=== PATIENT | male | born 1960 | race Caucasian/White ===

== ENCOUNTER 2018-10-02 08:26 | Inpatient (IN) | payer MEDICARE, MEDICAID ==
[~2018-10-02] VITALS: Ht 188 cm; Wt 137.8 kg
--- NOTE | 2018-10-02 08:26 | NUR ---
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
[2018-10-02] MEDS ORDERED: SODIUM CHLORIDE FLUSH 10ML SYR IVF ONE (09:00)
--- NOTE | 2018-10-02 09:04 | NUR ---
pt upright on gurney awake & comfortable, responds to staff approp, NAD, comfort measures provided, call light within reach.
[2018-10-02] MEDS ORDERED: METO25TA35 PO (09:23)
[2018-10-02] MEDS ORDERED: LOSA100T14 PO (09:23)
[2018-10-02] MEDS ORDERED: FOLI-17 PO (09:23)
[2018-10-02] MEDS ORDERED: CITA10TA4 PO (09:23)
[2018-10-02] MEDS ORDERED: GABA300C10 PO (09:23)
[2018-10-02] MEDS ORDERED: THIA500T PO (09:23)
[2018-10-02] MEDS ORDERED: AMLO-150 PO (09:23)
[2018-10-02] MEDS ORDERED: MAGN400T26 PO (09:23)
[2018-10-02] MEDS ORDERED: MULT-658 PO (09:23)
[2018-10-02 09:30] LABS: BASOPHILS # (AUTO) 0.01 x10^3/uL (0-0.1); BASOPHILS % (AUTO) 0 % (0-1); EOSINOPHILS % (AUTO) 0 % (1-7); LYMPHOCYTES # (AUTO) 0.76 x10^3/uL (1-3.4); LYMPHOCYTES % (AUTO) 6 % (22-44); MD NO; MEAN CORPUSCULAR HEMOGLOBIN 33.8 pg (27.5-34.5); MEAN CORPUSCULAR HGB CONC 33.3 g/dL (33.2-36.2); MEAN CORPUSCULAR VOLUME 101.6 fL (81-97); MONOCYTES # (AUTO) 0.14 x10^3/uL (0.2-0.8); MONOCYTES % (AUTO) 1 % (2-9); NEUTROPHILS # (AUTO) 10.89 x10^3/uL (1.8-6.8); NEUTROPHILS % (AUTO) 92 % (42-75); PLATELET COUNT 213 x10^3/uL (130-400); RED BLOOD COUNT 4.04 x10^6/uL (4.38-5.82); RED CELL DISTRIBUTION WIDTH 17.4 % (9.4-14.8)
[2018-10-02 09:34] LABS: INTERNATIONAL NORMALIZED RATIO 1.25 (0.93-1.1)
[2018-10-02 09:36] LABS: ALBUMIN 1.7 g/dL (3.4-5.0); CALCIUM 7.8 mg/dL (8.5-10.1)
[2018-10-02 09:37] LABS: ALANINE AMINOTRANSFERASE 21 U/L (12-78); CREATININE 1.29 mg/dL (0.7-1.3)
[2018-10-02 09:39] LABS: ALKALINE PHOSPHATASE 193 U/L (45-117); BILIRUBIN,TOTAL 3.4 mg/dL (0.2-1.0); TOTAL PROTEIN 8.2 g/dL (6.4-8.2)
--- NOTE | 2018-10-02 09:51 | NUR ---
Pt to be admitted to med-surg, room 451. Report called to Thi.
[2018-10-02 10:04] LABS: ANION GAP 12 mmol/L (5-15); CHLORIDE 108 mmol/L (98-107)
[2018-10-02] MEDS: SODIUM CHLORIDE 0.9% 1,000 ML IV SCH ×6 (10:51→23:50)
[2018-10-02] MEDS ORDERED: VANCOMYCIN PER PHARMACY MC PRN (11:00)
[2018-10-02] MEDS ORDERED: HEPARIN 5,000 UNITS/ML, 1ML SQ SCH (11:00)
[2018-10-02] MEDS ORDERED: ZOSYN PER PHARMACY MC PRN (11:00)
[2018-10-02] MEDS ORDERED: LABETALOL 5MG/ML, 20ML IVPush PRN (11:00)
[2018-10-02] MEDS ORDERED: PHARMACOKINETIC MONITORING MC PRN (11:30)
[2018-10-02] MEDS: GABAPENTIN 300 MG CAPSULE PO SCH ×3 (11:43→21:14)
[2018-10-02 11:57] VITALS: BP 153/94
[2018-10-02] MEDS: PIPERACILLIN/TAZO/PMX 4.5GM 100 ML IV SCH ×2 (11:57→19:23)
[2018-10-02] MEDS: HYDROcodone/APAP 5/325 TABLET PO PRN (12:16)
[2018-10-02] MEDS: INSULIN LISPRO 100 UNITS/ML, PEN SQ-INSULIN SCH ×3 (12:26→21:18)
[2018-10-02] MEDS: CLINDAMYCIN PMX 600MG/50ML 50 ML IV SCH ×2 (13:45→20:11)
[2018-10-02 16:21] VITALS: BP 147/77
[2018-10-02] MEDS: VANCOMYCIN 2,000 MG in SODIUM CHLORIDE 0.9% 500 ML IV SCH (16:29)
[2018-10-02 20:03] VITALS: BP 131/74
[2018-10-02] MEDS: METOPROLOL TARTRATE 50 MG TABLET PO SCH (21:14)
[2018-10-02] MEDS: CITALOPRAM 20 MG TABLET PO SCH (21:14)
[2018-10-03] MEDS: PIPERACILLIN/TAZO/PMX 4.5GM 100 ML IV SCH ×4 (01:26→21:21)
[2018-10-03 01:56] VITALS: BP 122/67
[2018-10-03] MEDS: CLINDAMYCIN PMX 600MG/50ML 50 ML IV SCH ×4 (02:13→21:27)
[2018-10-03 02:22] LABS: ALANINE AMINOTRANSFERASE 20 U/L (12-78); ALBUMIN 1.4 g/dL (3.4-5.0); ANION GAP 6 mmol/L (5-15); CALCIUM 7.5 mg/dL (8.5-10.1); CHLORIDE 110 mmol/L (98-107)
[2018-10-03 02:25] LABS: ALKALINE PHOSPHATASE 163 U/L (45-117); BILIRUBIN,TOTAL 1.6 mg/dL (0.2-1.0); TOTAL PROTEIN 6.9 g/dL (6.4-8.2)
[2018-10-03 06:00] LABS: BASOPHILS # (AUTO) 0.02 x10^3/uL (0-0.1); BASOPHILS % (AUTO) 0 % (0-1); EOSINOPHILS % (AUTO) 0 % (1-7); LYMPHOCYTES # (AUTO) 1.28 x10^3/uL (1-3.4); LYMPHOCYTES % (AUTO) 9 % (22-44); MD NO; MEAN CORPUSCULAR HGB CONC 33.6 g/dL (33.2-36.2); MEAN CORPUSCULAR VOLUME 100.9 fL (81-97); MEAN PLATELET VOLUME 7.9 fL (7.4-10.4); MONOCYTES # (AUTO) 0.59 x10^3/uL (0.2-0.8); MONOCYTES % (AUTO) 4 % (2-9); NEUTROPHILS # (AUTO) 13.04 x10^3/uL (1.8-6.8); NEUTROPHILS % (AUTO) 87 % (42-75); PLATELET COUNT 164 x10^3/uL (130-400); RED BLOOD COUNT 3.33 x10^6/uL (4.38-5.82); RED CELL DISTRIBUTION WIDTH 17.3 % (9.4-14.8)
[2018-10-03] MEDS: GABAPENTIN 300 MG CAPSULE PO SCH ×4 (06:00→21:21)
[2018-10-03] MEDS: INSULIN LISPRO 100 UNITS/ML, PEN SQ-INSULIN SCH ×4 (06:20→21:00)
[2018-10-03 06:26] LABS: CHLORIDE 112 mmol/L (98-107)
[2018-10-03 06:35] LABS: ALANINE AMINOTRANSFERASE 20 U/L (12-78); ALBUMIN 1.4 g/dL (3.4-5.0); ALKALINE PHOSPHATASE 160 U/L (45-117); ANION GAP 4 mmol/L (5-15); BILIRUBIN,TOTAL 1.5 mg/dL (0.2-1.0); CALCIUM 7.7 mg/dL (8.5-10.1); CREATININE 1.06 mg/dL (0.7-1.3); TOTAL PROTEIN 6.8 g/dL (6.4-8.2)
[2018-10-03 07:39] VITALS: BP 100/55
[2018-10-03] MEDS: FOLIC ACID 1 MG TABLET PO SCH (09:10)
[2018-10-03] MEDS: THIAMINE 100MG TABLET PO SCH (09:10)
[2018-10-03] MEDS: AMLODIPINE 10 MG TAB PO SCH (09:10)
[2018-10-03] MEDS: MULTIVITAMIN 1 TABLET PO SCH (09:13)
[2018-10-03] MEDS: METOPROLOL TARTRATE 50 MG TABLET PO SCH ×2 (09:14→21:21)
[2018-10-03] MEDS: LOSARTAN 50MG TABLET PO SCH (09:15)
[2018-10-03 09:16] VITALS: BP 120/72
[2018-10-03] MEDS: VANCOMYCIN 2,000 MG in SODIUM CHLORIDE 0.9% 500 ML IV SCH ×2 (10:00→15:55)
[2018-10-03] MEDS ORDERED: MIDAZOLAM 1 MG/ML, 2ML ONE (10:22)
[2018-10-03] MEDS ORDERED: FENTANYL PF 250 MCG/5ML ONE (10:22)
[2018-10-03] MEDS ORDERED: ALBUTEROL SULFATE 2.5 MG/3 ML ONE (10:50)
[2018-10-03] MEDS ORDERED: PROPOFOL 10 MG/ML, 20ML ONE (11:08)
[2018-10-03] MEDS ORDERED: SUCCINYLCHOLINE 20 MG/ML, 10ML ONE (11:08)
[2018-10-03] MEDS ORDERED: TRANEXAMIC ACID 100 MG/ML, 10ML ONE (11:57)
[2018-10-03] MEDS ORDERED: VANCOMYCIN 1,000 MG ONE (11:57)
[2018-10-03] MEDS ORDERED: THROMBIN 20,000 UNIT VIAL TP ONE (12:07)
[2018-10-03] MEDS ORDERED: MICROFIBRILLAR COLLAGEN 1 GM TP ONE (12:08)
[2018-10-03] MEDS ORDERED: hydrALAzine 20 MG/ML, 1ML IV PRN (12:30)
[2018-10-03] MEDS ORDERED: MEPERIDINE/PF 25MG/0.5ML IVPush PRN (12:30)
[2018-10-03] MEDS ORDERED: ALBUTEROL SULFATE 2.5 MG/3 ML NPPB PRN (12:30)
[2018-10-03] MEDS ORDERED: HYDROmorphone 2 MG/ML, 1ML IVPush PRN (12:30)
[2018-10-03] MEDS ORDERED: ACETAMINOPHEN 325 MG TABLET PO PRN (12:30)
[2018-10-03] MEDS ORDERED: DIAZEPAM 5 MG/ML, 2ML IVPush PRN (12:30)
[2018-10-03] MEDS ORDERED: PROMETHAZINE 25 MG/ML, 1ML IV PRN (12:30)
[2018-10-03] MEDS ORDERED: LABETALOL 5MG/ML, 20ML IV PRN (12:30)
[2018-10-03] MEDS ORDERED: FENTANYL PF 100 MCG/2ML IV PRN (12:30)
[2018-10-03] MEDS ORDERED: ALBUTEROL/IPRATROPIUM 2.5MG/0.5MG, 3 ML ONE (13:15)
[2018-10-03] MEDS ORDERED: OXYcodone 5 MG/5 ML ORAL.SOL UDC ONE ×2 (14:04→14:11)
[2018-10-03] MEDS: OXYcodone 5 MG/5 ML ORAL.SOL UDC PO PRN ×2 (14:05→14:12)
[2018-10-03] MEDS ORDERED: FENTANYL PF 100 MCG/2ML ONE (14:10)
[2018-10-03 14:50] VITALS: BP 116/63
[2018-10-03] MEDS: CITALOPRAM 20 MG TABLET PO SCH (21:21)
[2018-10-03] MEDS: SODIUM CHLORIDE 0.9% 1,000 ML IV SCH (21:22)
[2018-10-03 23:35] VITALS: BP 121/69
[2018-10-04] MEDS: HYDROcodone/APAP 5/325 TABLET PO PRN ×3 (00:04→22:32)
[2018-10-04] MEDS: CLINDAMYCIN PMX 600MG/50ML 50 ML IV SCH (03:13)
[2018-10-04] MEDS: PIPERACILLIN/TAZO/PMX 4.5GM 100 ML IV SCH ×4 (03:13→21:08)
[2018-10-04] MEDS: SODIUM CHLORIDE 0.9% 1,000 ML IV SCH (03:14)
[2018-10-04 03:53] VITALS: BP 121/67
[2018-10-04 05:15] LABS: MEAN CORPUSCULAR HEMOGLOBIN 34.1 pg (27.5-34.5); MEAN CORPUSCULAR HGB CONC 33.4 g/dL (33.2-36.2); MEAN CORPUSCULAR VOLUME 102.1 fL (81-97); MEAN PLATELET VOLUME 7.8 fL (7.4-10.4); PLATELET COUNT 239 x10^3/uL (130-400); RED BLOOD COUNT 3.16 x10^6/uL (4.38-5.82); RED CELL DISTRIBUTION WIDTH 17.6 % (9.4-14.8)
[2018-10-04 05:23] LABS: ALBUMIN 1.4 g/dL (3.4-5.0); ANION GAP 4 mmol/L (5-15); CALCIUM 7.6 mg/dL (8.5-10.1); CHLORIDE 110 mmol/L (98-107)
[2018-10-04 05:27] LABS: ALANINE AMINOTRANSFERASE 22 U/L (12-78); ALKALINE PHOSPHATASE 146 U/L (45-117); BILIRUBIN,TOTAL 1.4 mg/dL (0.2-1.0); CREATININE 1.08 mg/dL (0.7-1.3); TOTAL PROTEIN 6.7 g/dL (6.4-8.2)
[2018-10-04 06:09] LABS: BASOPHILS # (AUTO) 0.03 x10^3/uL (0-0.1); BASOPHILS % (AUTO) 0 % (0-1); EOSINOPHILS % (AUTO) 0 % (1-7); LYMPHOCYTES # (AUTO) 2.19 x10^3/uL (1-3.4); LYMPHOCYTES % (AUTO) 14 % (22-44); MD SCAN; MONOCYTES # (AUTO) 0.93 x10^3/uL (0.2-0.8); MONOCYTES % (AUTO) 6 % (2-9); NEUTROPHILS # (AUTO) 12.73 x10^3/uL (1.8-6.8); NEUTROPHILS % (AUTO) 80 % (42-75)
[2018-10-04] MEDS: GABAPENTIN 300 MG CAPSULE PO SCH ×4 (06:14→21:07)
[2018-10-04] MEDS: INSULIN LISPRO 100 UNITS/ML, PEN SQ-INSULIN SCH ×4 (06:14→21:00)
[2018-10-04 08:00] VITALS: BP 114/63
[2018-10-04] MEDS: THIAMINE 100MG TABLET PO SCH (09:27)
[2018-10-04] MEDS: METOPROLOL TARTRATE 50 MG TABLET PO SCH ×2 (09:27→21:07)
[2018-10-04] MEDS: MULTIVITAMIN 1 TABLET PO SCH (09:27)
[2018-10-04] MEDS: FOLIC ACID 1 MG TABLET PO SCH (09:27)
[2018-10-04] MEDS: AMLODIPINE 10 MG TAB PO SCH (09:27)
[2018-10-04] MEDS: LOSARTAN 50MG TABLET PO SCH (09:27)
[2018-10-04] MEDS: VANCOMYCIN 2,000 MG in SODIUM CHLORIDE 0.9% 500 ML IV SCH (10:58)
[2018-10-04 14:00] VITALS: BP 115/56
[2018-10-04] MEDS: CITALOPRAM 20 MG TABLET PO SCH (21:07)
[2018-10-04 21:13] VITALS: BP 112/60
[2018-10-04] MEDS: morphine SULFATE 10 MG/ML, 1ML IVPush PRN (21:55)
[2018-10-05] MEDS: PIPERACILLIN/TAZO/PMX 4.5GM 100 ML IV SCH ×2 (03:00→10:02)
[2018-10-05 03:17] VITALS: BP 100/60
[2018-10-05] MEDS: SODIUM CHLORIDE 0.9% 1,000 ML IV SCH (04:50)
[2018-10-05] MEDS: VANCOMYCIN 2,000 MG in SODIUM CHLORIDE 0.9% 500 ML IV SCH (04:50)
[2018-10-05] MEDS: GABAPENTIN 300 MG CAPSULE PO SCH ×4 (05:12→21:07)
[2018-10-05] MEDS: HYDROcodone/APAP 5/325 TABLET PO PRN ×2 (05:12→12:08)
[2018-10-05 05:17] LABS: BASOPHILS # (AUTO) 0.04 x10^3/uL (0-0.1); BASOPHILS % (AUTO) 0 % (0-1); EOSINOPHILS # (AUTO) 0.14 x10^3/uL (0-0.4); EOSINOPHILS % (AUTO) 1 % (1-7); LYMPHOCYTES # (AUTO) 2.96 x10^3/uL (1-3.4); LYMPHOCYTES % (AUTO) 27 % (22-44); MD NO; MEAN CORPUSCULAR HEMOGLOBIN 34.5 pg (27.5-34.5); MEAN CORPUSCULAR VOLUME 101.6 fL (81-97); MEAN PLATELET VOLUME 7.7 fL (7.4-10.4); MONOCYTES # (AUTO) 0.81 x10^3/uL (0.2-0.8); MONOCYTES % (AUTO) 7 % (2-9); NEUTROPHILS # (AUTO) 6.91 x10^3/uL (1.8-6.8); NEUTROPHILS % (AUTO) 64 % (42-75); PLATELET COUNT 200 x10^3/uL (130-400); RED BLOOD COUNT 2.94 x10^6/uL (4.38-5.82); RED CELL DISTRIBUTION WIDTH 17.3 % (9.4-14.8)
[2018-10-05 05:23] LABS: ALBUMIN 1.3 g/dL (3.4-5.0); ANION GAP 3 mmol/L (5-15); CALCIUM 7.4 mg/dL (8.5-10.1); CHLORIDE 112 mmol/L (98-107)
[2018-10-05 05:37] LABS: ALANINE AMINOTRANSFERASE 29 U/L (12-78); ALKALINE PHOSPHATASE 141 U/L (45-117); BILIRUBIN,TOTAL 1.2 mg/dL (0.2-1.0); CREATININE 1.03 mg/dL (0.7-1.3); TOTAL PROTEIN 5.9 g/dL (6.4-8.2); VANCOMYCIN,TROUGH 20.7 mcg/mL (5.0-10.0)
[2018-10-05] MEDS: INSULIN LISPRO 100 UNITS/ML, PEN SQ-INSULIN SCH ×4 (07:00→21:07)
[2018-10-05] MEDS ORDERED: ACETAMINOPHEN 325 MG TABLET PO PRN (08:31)
[2018-10-05 08:45] VITALS: BP 117/70
[2018-10-05] MEDS: THIAMINE 100MG TABLET PO SCH (08:54)
[2018-10-05] MEDS: FOLIC ACID 1 MG TABLET PO SCH (08:55)
[2018-10-05] MEDS: MULTIVITAMIN 1 TABLET PO SCH (08:56)
[2018-10-05] MEDS: LOSARTAN 50MG TABLET PO SCH (08:57)
[2018-10-05] MEDS: METOPROLOL TARTRATE 50 MG TABLET PO SCH ×2 (08:58→21:06)
[2018-10-05] MEDS ORDERED: VANCOMYCIN PER PHARMACY MC PRN (12:00)
[2018-10-05 12:09] VITALS: BP 134/76
[2018-10-05] MEDS: DAPTOMYCIN 850 MG in SODIUM CHLORIDE 0.9% 100 ML IV SCH (15:28)
[2018-10-05 18:54] VITALS: BP 127/75
[2018-10-05] MEDS: CITALOPRAM 20 MG TABLET PO SCH (21:06)
[2018-10-06 00:37] VITALS: BP 118/60
[2018-10-06 04:18] LABS: BASOPHILS # (AUTO) 0.03 x10^3/uL (0-0.1); BASOPHILS % (AUTO) 0 % (0-1); EOSINOPHILS % (AUTO) 4 % (1-7); LYMPHOCYTES # (AUTO) 2.44 x10^3/uL (1-3.4); LYMPHOCYTES % (AUTO) 29 % (22-44); MD NO; MEAN CORPUSCULAR HEMOGLOBIN 34.4 pg (27.5-34.5); MEAN CORPUSCULAR HGB CONC 33.8 g/dL (33.2-36.2); MEAN PLATELET VOLUME 7.4 fL (7.4-10.4); MONOCYTES # (AUTO) 0.66 x10^3/uL (0.2-0.8); MONOCYTES % (AUTO) 8 % (2-9); NEUTROPHILS # (AUTO) 4.89 x10^3/uL (1.8-6.8); NEUTROPHILS % (AUTO) 59 % (42-75); PLATELET COUNT 209 x10^3/uL (130-400); RED BLOOD COUNT 3.12 x10^6/uL (4.38-5.82); RED CELL DISTRIBUTION WIDTH 17.5 % (9.4-14.8)
[2018-10-06] MEDS ORDERED: VANCOMYCIN 2,000 MG in SODIUM CHLORIDE 0.9% 500 ML IV SCH (05:00)
[2018-10-06] MEDS: SODIUM CHLORIDE 0.9% 1,000 ML IV SCH (05:19)
[2018-10-06] MEDS: GABAPENTIN 300 MG CAPSULE PO SCH ×4 (06:01→21:02)
[2018-10-06] MEDS: INSULIN LISPRO 100 UNITS/ML, PEN SQ-INSULIN SCH ×4 (07:00→21:00)
[2018-10-06 07:48] VITALS: BP 129/73
[2018-10-06] MEDS: LOSARTAN 50MG TABLET PO SCH (07:49)
[2018-10-06] MEDS: METOPROLOL TARTRATE 50 MG TABLET PO SCH ×2 (07:49→21:02)
[2018-10-06] MEDS: FOLIC ACID 1 MG TABLET PO SCH (07:49)
[2018-10-06] MEDS: THIAMINE 100MG TABLET PO SCH (07:49)
[2018-10-06] MEDS: MULTIVITAMIN 1 TABLET PO SCH (07:50)
[2018-10-06 12:06] VITALS: BP 121/66
[2018-10-06] MEDS: HYDROcodone/APAP 5/325 TABLET PO PRN ×2 (13:34→21:11)
[2018-10-06] MEDS: DAPTOMYCIN 850 MG in SODIUM CHLORIDE 0.9% 100 ML IV SCH (14:16)
[2018-10-06] MEDS ORDERED: GADOBUTROL 15 MMOL/15 ML VIAL ONE (16:59)
[2018-10-06 19:31] VITALS: BP 118/60
[2018-10-06] MEDS: CITALOPRAM 20 MG TABLET PO SCH (21:02)
[2018-10-07 00:25] VITALS: BP 120/66
[2018-10-07 05:17] LABS: ALANINE AMINOTRANSFERASE 30 U/L (12-78); ALBUMIN 1.3 g/dL (3.4-5.0); ANION GAP 4 mmol/L (5-15); CHLORIDE 113 mmol/L (98-107); CREATININE 0.78 mg/dL (0.7-1.3)
[2018-10-07 05:19] LABS: ALKALINE PHOSPHATASE 153 U/L (45-117); BILIRUBIN,TOTAL 0.8 mg/dL (0.2-1.0); TOTAL PROTEIN 5.8 g/dL (6.4-8.2)
[2018-10-07] MEDS: GABAPENTIN 300 MG CAPSULE PO SCH ×4 (06:26→22:06)
[2018-10-07] MEDS: INSULIN LISPRO 100 UNITS/ML, PEN SQ-INSULIN SCH ×4 (07:00→21:00)
[2018-10-07 07:36] VITALS: BP 128/70
[2018-10-07] MEDS: THIAMINE 100MG TABLET PO SCH (08:31)
[2018-10-07] MEDS: METOPROLOL TARTRATE 50 MG TABLET PO SCH ×2 (08:31→22:06)
[2018-10-07] MEDS: MULTIVITAMIN 1 TABLET PO SCH (08:31)
[2018-10-07] MEDS: HYDROcodone/APAP 5/325 TABLET PO PRN ×3 (08:31→22:23)
[2018-10-07] MEDS: LOSARTAN 50MG TABLET PO SCH (08:32)
[2018-10-07] MEDS: FOLIC ACID 1 MG TABLET PO SCH (08:32)
[2018-10-07 10:44] LABS: CLOSTRIDIUM DIFFICILE ANTIGEN NEGATIVE; CLOSTRIDIUM DIFFICILE TOXIN NEGATIVE (Negative)
[2018-10-07] MEDS: DAPTOMYCIN 850 MG in SODIUM CHLORIDE 0.9% 100 ML IV SCH ×2 (14:51→22:06)
[2018-10-07 15:00] VITALS: BP 139/76
[2018-10-07 20:28] VITALS: BP 120/71
[2018-10-07] MEDS: CITALOPRAM 20 MG TABLET PO SCH (22:06)
[2018-10-08 01:25] VITALS: BP 121/62
[2018-10-08] MEDS: HYDROcodone/APAP 5/325 TABLET PO PRN ×4 (02:23→23:51)
[2018-10-08] MEDS: GABAPENTIN 300 MG CAPSULE PO SCH (06:18)
[2018-10-08] MEDS: INSULIN LISPRO 100 UNITS/ML, PEN SQ-INSULIN SCH ×4 (06:20→21:00)
[2018-10-08] MEDS: METOPROLOL TARTRATE 50 MG TABLET PO SCH ×2 (10:44→22:18)
[2018-10-08] MEDS: LOSARTAN 50MG TABLET PO SCH (10:44)
[2018-10-08] MEDS: FOLIC ACID 1 MG TABLET PO SCH (10:45)
[2018-10-08] MEDS: MULTIVITAMIN 1 TABLET PO SCH (10:46)
[2018-10-08] MEDS: THIAMINE 100MG TABLET PO SCH (10:46)
[2018-10-08] MEDS: GABAPENTIN 400 MG CAPSULE PO SCH ×3 (10:47→22:19)
[2018-10-08 10:49] VITALS: BP 130/72
[2018-10-08] MEDS: METRONIDAZOLE PMX 500MG/100ML 100 ML IV SCH ×2 (11:39→19:27)
[2018-10-08] MEDS ORDERED: SIMETHICONE 125 MG CHEW TAB PO PRN (13:00)
[2018-10-08] MEDS ORDERED: SIMETHICONE 125 MG CHEW TAB ONE (13:02)
[2018-10-08 13:11] VITALS: BP 140/69
[2018-10-08 20:38] VITALS: BP 115/57
[2018-10-08] MEDS: CITALOPRAM 20 MG TABLET PO SCH (22:18)
[2018-10-08] MEDS: DAPTOMYCIN 850 MG in SODIUM CHLORIDE 0.9% 100 ML IV SCH (22:18)
[2018-10-08] MEDS: MESALAMINE ENEMA 4 GM/60 ML ENEMA PR SCH (22:19)
[2018-10-09 00:52] VITALS: BP 127/70
[2018-10-09] MEDS: METRONIDAZOLE PMX 500MG/100ML 100 ML IV SCH ×3 (02:58→18:24)
[2018-10-09] MEDS: HYDROcodone/APAP 5/325 TABLET PO PRN ×3 (03:50→23:16)
[2018-10-09 05:33] LABS: CHLORIDE 111 mmol/L (98-107)
[2018-10-09 06:02] LABS: ALANINE AMINOTRANSFERASE 28 U/L (12-78); ALBUMIN 1.4 g/dL (3.4-5.0); ALKALINE PHOSPHATASE 147 U/L (45-117); ANION GAP 4 mmol/L (5-15); CALCIUM 8.1 mg/dL (8.5-10.1); CREATININE 0.54 mg/dL (0.7-1.3); TOTAL PROTEIN 6.1 g/dL (6.4-8.2)
[2018-10-09] MEDS: GABAPENTIN 400 MG CAPSULE PO SCH ×4 (06:18→21:57)
[2018-10-09] MEDS: INSULIN LISPRO 100 UNITS/ML, PEN SQ-INSULIN SCH ×4 (06:18→21:00)
[2018-10-09 08:00] VITALS: BP 121/71
[2018-10-09] MEDS: MULTIVITAMIN 1 TABLET PO SCH (09:34)
[2018-10-09] MEDS: THIAMINE 100MG TABLET PO SCH (09:34)
[2018-10-09] MEDS: LOSARTAN 50MG TABLET PO SCH (09:36)
[2018-10-09] MEDS: FOLIC ACID 1 MG TABLET PO SCH (09:37)
[2018-10-09] MEDS: METOPROLOL TARTRATE 50 MG TABLET PO SCH ×2 (09:38→21:57)
[2018-10-09 14:00] VITALS: BP 122/61
[2018-10-09] MEDS ORDERED: OMNIPAQUE 350 MG/ML, 150 ML BOTTLE ONE (16:19)
[2018-10-09 19:10] VITALS: BP 132/75
[2018-10-09] MEDS: CITALOPRAM 20 MG TABLET PO SCH (21:57)
[2018-10-09] MEDS: MESALAMINE ENEMA 4 GM/60 ML ENEMA PR SCH (21:57)
[2018-10-09] MEDS: DAPTOMYCIN 850 MG in SODIUM CHLORIDE 0.9% 100 ML IV SCH (22:43)
[2018-10-10 01:27] VITALS: BP 114/63
[2018-10-10] MEDS: morphine SULFATE 10 MG/ML, 1ML IVPush PRN (01:43)
[2018-10-10] MEDS: METRONIDAZOLE PMX 500MG/100ML 100 ML IV SCH ×3 (02:40→20:26)
[2018-10-10] MEDS: GABAPENTIN 400 MG CAPSULE PO SCH ×4 (06:30→19:47)
[2018-10-10] MEDS: INSULIN LISPRO 100 UNITS/ML, PEN SQ-INSULIN SCH ×4 (06:32→20:26)
[2018-10-10] MEDS ORDERED: LIDOCAINE-MPF 1%, 5ML ONE (07:53)
[2018-10-10 08:00] VITALS: BP 131/72
[2018-10-10] MEDS ORDERED: LOSARTAN 25MG TABLET PO SCH (09:00)
[2018-10-10] MEDS: FOLIC ACID 1 MG TABLET PO SCH (09:13)
[2018-10-10] MEDS: MULTIVITAMIN 1 TABLET PO SCH (09:13)
[2018-10-10] MEDS: HYDROcodone/APAP 5/325 TABLET PO PRN ×2 (09:13→19:51)
[2018-10-10] MEDS: THIAMINE 100MG TABLET PO SCH (09:13)
[2018-10-10] MEDS: METOPROLOL TARTRATE 25 MG TABLET PO SCH ×2 (09:14→19:53)
[2018-10-10 10:58] LABS: CELLS COUNTED 116
[2018-10-10 14:10] VITALS: BP 148/73
[2018-10-10] MEDS: ALBUMIN HUMAN 25% 100 ML IV SCH (17:15)
[2018-10-10] MEDS: CITALOPRAM 20 MG TABLET PO SCH (19:49)
[2018-10-10 19:50] VITALS: BP 130/64
[2018-10-10 20:56] VITALS: BP 131/60
[2018-10-10] MEDS: MESALAMINE ENEMA 4 GM/60 ML ENEMA PR SCH (23:18)
[2018-10-10] MEDS: DAPTOMYCIN 850 MG in SODIUM CHLORIDE 0.9% 100 ML IV SCH (23:19)
[2018-10-11 00:58] VITALS: BP 145/62
[2018-10-11] MEDS: ALBUMIN HUMAN 25% 100 ML IV SCH (02:16)
[2018-10-11] MEDS: HYDROcodone/APAP 5/325 TABLET PO PRN (02:30)
[2018-10-11] MEDS: METRONIDAZOLE PMX 500MG/100ML 100 ML IV SCH (04:49)
[2018-10-11 04:53] LABS: BASOPHILS # (AUTO) 0.02 x10^3/uL (0-0.1); BASOPHILS % (AUTO) 1 % (0-1); EOSINOPHILS # (AUTO) 0.05 x10^3/uL (0-0.4); EOSINOPHILS % (AUTO) 1 % (1-7); HCT (SEDRATE) 27.9 % (39.2-51.8); LYMPHOCYTES # (AUTO) 1.65 x10^3/uL (1-3.4); LYMPHOCYTES % (AUTO) 36 % (22-44); MD NO; MEAN CORPUSCULAR HEMOGLOBIN 34.6 pg (27.5-34.5); MEAN CORPUSCULAR VOLUME 101.6 fL (81-97); MONOCYTES # (AUTO) 0.64 x10^3/uL (0.2-0.8); MONOCYTES % (AUTO) 14 % (2-9); NEUTROPHILS # (AUTO) 2.19 x10^3/uL (1.8-6.8); NEUTROPHILS % (AUTO) 48 % (42-75); PLATELET COUNT 102 x10^3/uL (130-400); RED BLOOD COUNT 2.75 x10^6/uL (4.38-5.82); RED CELL DISTRIBUTION WIDTH 18.7 % (9.4-14.8)
[2018-10-11 04:58] LABS: HEMOGRAM NOTE RECHECKED
[2018-10-11 05:01] LABS: CHLORIDE 108 mmol/L (98-107)
[2018-10-11] MEDS: morphine SULFATE 10 MG/ML, 1ML IVPush PRN (05:05)
[2018-10-11 05:15] LABS: ALANINE AMINOTRANSFERASE 24 U/L (12-78); ALBUMIN 1.8 g/dL (3.4-5.0); ALKALINE PHOSPHATASE 126 U/L (45-117); ANION GAP 5 mmol/L (5-15); BILIRUBIN,TOTAL 1.1 mg/dL (0.2-1.0); CALCIUM 7.6 mg/dL (8.5-10.1); CREATININE 0.64 mg/dL (0.7-1.3); TOTAL PROTEIN 5.6 g/dL (6.4-8.2)
[2018-10-11 05:19] LABS: CREATINE KINASE, TOTAL 65 U/L (39-308)
[2018-10-11] MEDS: INSULIN LISPRO 100 UNITS/ML, PEN SQ-INSULIN SCH ×2 (06:30→11:00)
[2018-10-11] MEDS: GABAPENTIN 400 MG CAPSULE PO SCH ×2 (06:31→11:42)
[2018-10-11 07:59] VITALS: BP 133/69
[2018-10-11] MEDS: THIAMINE 100MG TABLET PO SCH (08:57)
[2018-10-11] MEDS: FOLIC ACID 1 MG TABLET PO SCH (08:58)
[2018-10-11] MEDS: MULTIVITAMIN 1 TABLET PO SCH (08:58)
[2018-10-11] MEDS ORDERED: FUROSEMIDE 40 MG TABLET PO SCH (09:00)
[2018-10-11] MEDS ORDERED: SPIRONOLACTONE 100 MG TABLET PO SCH (09:00)
[2018-10-11] MEDS: METOPROLOL TARTRATE 25 MG TABLET PO SCH (09:01)
[2018-10-11] MEDS ORDERED: FURO40TA6 PO (11:24)
[2018-10-11] MEDS ORDERED: SPIR100T PO (11:24)
[2018-10-11] MEDS ORDERED: GABA-827 PO (11:24)
[2018-10-11] MEDS ORDERED: METO25TA35 PO (11:24)
[2018-10-11] MEDS ORDERED: AMPICILLIN/SULBACTAM 3 GM in SODIUM CHLORIDE 0.9% 100 ML IV SCH (12:00)
[2018-10-11 13:30] VITALS: BP 125/60
[2018-10-12 12:47] LABS: ANA SCREEN POSITIVE (Negative)
[2018-10-12 12:48] LABS: ANTI-NUCLEAR ANTIBODY PATTERN SPECKLED
== END 2018-10-11 15:20 | DRG 853 ==
LOC: ED 08:51 → EDIP 09:31 → 4NOR 10:35
PROVIDERS: ADMIT Internal Medicine; ATTEND Internal Medicine
PROC: 0QBN0ZX Excision of Right Metatarsal, Open Approach, Diagnostic (ICD-10-PCS; 2018-10-03)
PROC: 0QBN0ZZ Excision of Right Metatarsal, Open Approach (ICD-10-PCS; 2018-10-03)
PROC: 3E0T3BZ Introduction of Anesthetic Agent into Peripheral Nerves and Plexi, Percutaneous Approach (ICD-10-PCS; 2018-10-03)
PROC: 0Y6J0Z1 Detachment at Left Lower Leg, High, Open Approach (ICD-10-PCS; principal; 2018-10-03 11:00)
PROC: 0L8N0ZZ Division of Right Lower Leg Tendon, Open Approach (ICD-10-PCS; 2018-10-03 11:00)
PROC: 0W9G3ZZ Drainage of Peritoneal Cavity, Percutaneous Approach (ICD-10-PCS; 2018-10-10)
DX: A41.9 Sepsis, unspecified organism (principal); E43 Unspecified severe protein-calorie malnutrition; L03.116 Cellulitis of left lower limb; E11.52 Type 2 diabetes mellitus with diabetic peripheral angiopathy with gangrene; E87.2 Acidosis; K56.7 Ileus, unspecified; M86.8X7 Other osteomyelitis, ankle and foot; R65.20 Severe sepsis without septic shock; E11.40 Type 2 diabetes mellitus with diabetic neuropathy, unspecified; E11.621 Type 2 diabetes mellitus with foot ulcer; E11.65 Type 2 diabetes mellitus with hyperglycemia; E11.69 Type 2 diabetes mellitus with other specified complication; E66.9 Obesity, unspecified; B96.6 Bacteroides fragilis [B. fragilis] as the cause of diseases classified elsewhere; N50.89 Other specified disorders of the male genital organs; E86.0 Dehydration; F32.9 Major depressive disorder, single episode, unspecified; M19.90 Unspecified osteoarthritis, unspecified site; I45.6 Pre-excitation syndrome; E78.5 Hyperlipidemia, unspecified; F17.200 Nicotine dependence, unspecified, uncomplicated; I10 Essential (primary) hypertension; J20.9 Acute bronchitis, unspecified; K70.31 Alcoholic cirrhosis of liver with ascites; L97.519 Non-pressure chronic ulcer of other part of right foot with unspecified severity; L97.529 Non-pressure chronic ulcer of other part of left foot with unspecified severity; Z88.8 Allergy status to other drugs, medicaments and biological substances; Z83.3 Family history of diabetes mellitus; Z89.421 Acquired absence of other right toe(s); Z68.39 Body mass index [BMI] 39.0-39.9, adult
CPT/HCPCS: 36415; 49083; 71045; 74018; 74177; 80053; 80202; 80307; 82042; 82550; 82728; 82945; 82962; 83036; 83540; 83550; 83605; 83735; 84100; 84157; 85025; 85610; 85651; 86038; 86039; 86140; 86704; 86706; 86708; 86803; 87040; 87070; 87075; 87077; 87186; 87205; 87324; 87340; 88305; 88307; 88311; 89051; 93005; 94640; 99285; A9585; G0378; J0295; J0878; J2250; J2543; J2704; J3010; J3370; P9047; Q9967; J0330; J1815; J2270; J7030; J7040